=== PATIENT | male | born 1990 | race Caucasian/White ===

== ENCOUNTER 2021-10-06 11:23 | Emergency (ER) | payer OTHER, SELFPAY ==
[2021-10-06 11:33] VITALS: BP 0/0; PULSE 0; RESP 0; TEMP -17.7; TEMP 0
== END 2021-10-06 11:34 | disposition left against medical advice (07) ==
PROVIDERS: Emergency Provider Nurse Practitioner Family
DX: Z53.21 Procedure and treatment not carried out due to patient leaving prior to being seen by health care provider (principal)

== ENCOUNTER 2024-06-17 12:21 | Emergency (ER) | payer SELFPAY ==
[2024-06-17 12:50] VITALS: BP 141/88; PULSE 73; RESP 18; TEMP 36.8; O2SAT 100; BMI 28.0
--- NOTE | 2024-06-17 12:58 | ED_ITS ---
Discharge Plan Disposition Patient Disposition: Home, Self-Care Condition: Good Prescriptions Prescriptions: No Action No Known Home Medications Referrals Follow up/Referrals: Provider,Referral, [Primary Care Provider] - See instructions Activity Restrictions/Add. Instructions Additional Instructions/Restrictions: Dr. Knox will see you now in his office at [facility] ([facility]) at: [address] [facility],?[place]?[id number] tel:[phone] Please go there now. You have a piece of metal embedded in your cornea and it must be removed or it will affect your vision. GO TO THE ER FOR ANY WORSENING SYMPTOMS Clinical Impressions Clinical Impression: Foreign body in cornea Instructions Patient Instructions: Tetanus, Diphtheria, and Pertussis Vaccine, DI for Corneal Foreign Body-Eye Print Language Print Language: [place] Discharge ED Provider: Matt Chambers [facility] HPI General Stated complaint: L eye pain Mode of Arrival: Ambulatory Source of Information: Patient Time Seen by Provider: 06/17/24 12:58 Description of Symptoms (Recalled from Triage Doc. by RN): PAIN IN LEFT EYE , THINKS HE MAY HAVE SCRATCHED IT HEENT Symptoms (Recalled from RN notes): Yes Resp Symptoms (Recalled from RN notes): No Skin Symptoms (Recalled from RN notes): No MS Symptoms (Recalled from RN notes): No Functional Status (Recalled from RN notes): WNL History of Present Illness Provider Complaint: He states that he has had left eye pain and foreign body sensation since earlier today when a metal shaving went into his eye. He states that he was wearing safety glasses while he was grinding, but the metal went up below the glasses. He denies that he has had any vision changes. His tetanus immunization is not up to date. Related Data Home Medications ?Medication ?Instructions ?Recorded ?Confirmed No Known Home Medications 06/17/24 06/17/24 Allergies Allergy/AdvReac Type Severity Reaction Status Date / Time No Known Allergies Allergy Unverified 07/30/17 14:12 Worker's Comp Is this a Worker's Comp case?: No [facility] Disclaimer: The information contained in this section may have been updated after the patient was seen, as this information can be updated by other users. Surgical History (Updated 06/17/24 @ 12:53 by Bertha Holcomb RN) History of appendectomy Social History Smoking Status: Never smoker alcohol intake: never current occupational status: employed Travel in the last 8 weeks: None ROS Obtained: Yes All systems reviewed & no additional complaints except as documented Constitutional Constitutional: Denies chills and Denies fever(s) Eyes Eyes: Reports as per HPI and Denies eye discharge ENT Ears, Nose, Mouth, and Throat: Denies dizziness, Denies otalgia and Denies sore throat Cardiovascular Cardiovascular: Denies chest pain Respiratory Respiratory: Denies shortness of breath, Denies chest congestion, Denies cough, Denies stridor and Denies wheezing Gastrointestinal Gastrointestingal: Denies nausea or vomiting Musculoskeletal Musculoskeletal: Reports system reviewed and no additional complaints, except as documented and Denies arthralgias Integumentary/Breasts Skin/Breast: Denies rash Neurologic Neurologic: Denies dizziness and Denies paresthesias Allergic/Immunologic Allergic/Immunologic: Denies wheezing Physical Exam General General appearance: alert and in no apparent distress Head Head exam: atraumatic, normocephalic and normal inspection Eye Eye exam: Present PERRL and EOMI Expanded Eye Exam Eyelids: right: normal inspection Pupils: Left: size (2), Right: size (2) and Bilateral: regular, round and reactive Sclera/Conjunctival: left: injection and right: normal inspection ENT ENT exam: Present normal exam, normal oropharynx, mucous membranes moist, TM's normal bilaterally and normal external ear exam Neck Neck exam: Present normal inspection, full ROM and trachea midline; Absent meningismus or lymphadenopathy Chest Chest inspection: Present normal inspection and symmetric chest wall rise; Absent tenderness Respiratory Respiratory exam: Present normal lung sounds bilaterally; Absent respiratory distress Cardiovascular Cardiovascular exam: Present regular rate and normal rhythm; Absent JVD Abdominal Exam Abdominal exam: Present soft and normal bowel sounds; Absent distention, tenderness or guarding Extremities Exam Extremities exam: Present normal inspection, full ROM and normal capillary refill; Absent calf tenderness Back Exam Back exam: Present normal inspection; Absent tenderness Neurological Exam Neurological exam: Present alert and oriented X3 Psychiatric Psychiatric exam: Present normal affect and normal mood Skin Skin exam: Present warm, dry, intact and normal color Lymphatic Lymphatic Findings: no adenopathy Medical Decision Making Medical Records Screening: Per USPSTF and CDC recommendations, given the prevalence of disease in our region, it is our hospital?s policy to screen for HIV and viral Hepatitis for all patients aged 18 and over and those with ongoing risk factors. Aleks Inquiry Pt receiving controlled substance: No Vital Signs: 06/17/24 12:50 Temperature 98.3 F Temperature Source Oral Pulse Rate [Left Radial] 73 Respiratory Rate 18 Blood Pressure [Left Arm] 141/88 H Blood Pressure Mean [Left Arm] 105 02 Sat by Pulse Oximetry 100 Procedures Risk/Benefits of Procedure(s) Were Explained: Yes Eye Exam/FB Removal Location: eye (L) Topical anesthetic used: tetracaine Fluorescein Stick(s) used: Yes Time Out performed: Yes Procedure performed under: direct visualization with magnification Foreign body: metal Evidence of corneal penetration: No Technique: other (the metal is embedded in his cornea. i did not try to remove it.) Eye irrigated w/saline (#ccs): 25 Patient tolerated procedure: well Complications: other (since metal was noted to be embedded in his cornea, Dr. Knox at the [facility] was notified and the patient was sent there to be evaluated. )
[2024-06-17] MEDS: TET/DIPHTH/PERT-ADULT 0.5ML SYRINGE 0.5 ML IM (14:04)
[2024-06-17 14:10] VITALS: BP 141/88; PULSE 73; RESP 18; TEMP 36.8
[2024-06-17] MEDS: EYE WASH IRRIGATION SOLN 118ML BOTTLE 120 ML OP (14:12)
== END 2024-06-17 14:12 | disposition home or self-care (01) ==
PROVIDERS: Emergency Provider Nurse Practitioner Family
DX: T15.02XA Foreign body in cornea, left eye, initial encounter (principal)
CPT/HCPCS: 90715; 99213; G0381